=== PATIENT | female | born 1995 | race Caucasian/White ===

== ENCOUNTER 2019-09-27 14:16 | Observation (INO) ==
[2019-09-27] MEDS ORDERED: SODIUM CHLORIDE 0.9% 1000ML 2,000 ML IV ONE (14:25)
--- NOTE | 2019-09-27 14:28 | Emergency Department Note ---
Impression & Plan Acute cholecystitis, Abdominal pain, UTI (urinary tract infection) ED Provider Note NAME: DANIEL CORONEL AGE: 23 SEX: F : 1995 ARRIVES VIA: Walk-In INFORMANT: Patient ED PROVIDER(S): Alfa Guerin DO CHIEF COMPLAINT: abdominal pain HPI: Pt was seen at [facility] and referred in to the ER for possible appendicitis. Patient notes that she has pain in the right upper quadrant which started yesterday morning. She describes pain as a 6 out of 10. She does have nausea. No vomiting. No dysuria urgency or frequency. Last menstrual period was September 21. Pain is worse with eating and drinking. Normal bowel movement was in the past 24 hours. Pain is also significantly worsened upon palpation. She notes she was evaluated at [facility] and they sent her over for concern from appendicitis. No previous abdominal surgeries. No vaginal bleeding or vaginal discharge. ROS: See above HPI for pertinent positives & negatives. A total of 10 systems reviewed and were otherwise negative. PAST MEDICAL HISTORY:anxiety PAST SURGICAL HISTORY:See Below FAMILY HISTORY:Cancer SOCIAL HISTORY:denies drinking HOME MEDICATIONS:See Below ALLERGIES:See Below VITALS:See Below PHYSICAL EXAMINATION: GENERAL: Sitting up in bed, alert, well appearing, well nourished, no distress, non-toxic EYE EXAM: normal conjunctiva. OROPHARYNX: no exudate, no erythema, lips, buccal mucosa, and tongue normal and mucous membranes are moist NECK: supple, no nuchal rigidity, no adenopathy, non-tender LUNGS: Clear to auscultation. Normal chest wall mechanics HEART: no murmurs, S1 normal and S2 normal ABDOMEN: abdomen soft, acutely tender to palpation right upper quadrant, normo- active bowel sounds, no masses, no rebound or guarding. BACK: Back is symmetrical on inspection and there is no deformity, no midline tenderness, no CVA tenderness. SKIN: no rashes and no bruising UPPER EXTREMITIES: upper extremities are grossly normal. LOWER EXTREMITIES: No pitting edema. NEURO EXAM: Normal sensorium, cranial nerves II-XII grossly intact, normal speech, no gross weakness of arms, no gross weakness of legs. MEDICAL DECISION MAKING: Patient is a 23-year-old female who presents the ER for right upper quadrant pain that has been present for the past 24 hours. On exam she is significantly tender in the right upper quadrant. IV was established blood work was obtained shows no significant leukocytosis or anemia. BMP along with LFTs bilirubin and lipase was unremarkable. UA initially was contaminated. CT abdomen pelvis shows a distended gallbladder concerning for acute cholecystitis. With her exam I did consult general surgery. She was evaluated and they took her to the OR. Repeat UA does suggest possible UTI as well as she has leukocytes and white cells which was uninterpretable on the first. Will defer to the admission team in regards to this as she was already out of the ER when this resulted. Triage Nursing notes reviewed. Prior medical records reviewed Vital Signs: reviewed and remarkable for no significant abnormalities Differential diagnosis: Differential diagnoses includes but is not limited to gastritis, peptic ulcer disease, GERD, gallbladder disease, pancreatitis, small bowel obstruction, acute coronary syndrome, pericarditis, ischemic bowel, irritable bowel disease, irritable bowel syndrome, appendicitis, diverticulitis, malignancy, hernia, urinary tract infection, torsion, /ectopic (if female), perforation, trauma, infectious. ER treatment provided: See below Diagnostics interpreted by me: ECG: none Cardiac Monitoring: An order was placed for continuous cardiac monitoring. The monitor shows a rate of 91 with sinus rhythm. Laboratory studies: As stated above and show below. Imaging studies: CT abdomen pelvis suggest acute cholecystitis. Consultation(s): Discussed with Carlos Mckinley ED COURSE: Procedures: none Critical Care: None Past Med/Surg History Medical History ADHD Social History Preferred Language: Haitian Feels Safe at Home: Yes Smoking Status: Never smoker Allergies Allergies Allergy/AdvReac Type Severity Reaction Status Date / Time No Known Allergies Allergy Unverified 09/27/19 15:23 Home Meds Home Medications Medication Instructions Recorded Confirmed guanfacine 1 mg PO DAILY 03/14/19 09/27/19 sertraline [Zoloft] 50 mg PO QAM 03/14/19 09/27/19 Results & Data (ED) Vital Signs Vital Signs - 24 hr 09/27/19 14:18 09/27/19 16:30 09/27/19 16:43 Temperature 36.8 C 36.8 C Temperature Source Oral Oral Pulse Rate 94 H Pulse Rate [Right Finger] 81 81 Pulse Rhythm Regular Pulse Rhythm [Right Finger] Regular Pulse Strength Normal Pulse Strength [Right Finger] Normal Respiratory Rate 16 20 18 Respiratory Effort / Characteristics Non-Labored Non-Labored Spontaneous Respiratory Depth Normal Normal Respiratory Pattern Regular Regular Blood Pressure 126/87 Blood Pressure [Left Arm] 137/82 132/92 Blood Pressure Mean 100 Blood Pressure Mean [Left Arm] 100 105 Blood Pressure Position [Left Arm] Lying Pulse Oximetry 100 100 100 Oxygen Delivery Method Room Air Room Air Room Air Sepsis Recent Fever Within 48 Hours No Sepsis Action Taken by Nursing No Action Required Laboratory Data Result diagrams: 09/27/19 14:46 09/27/19 14:46 Lab Results 09/27/19 09/27/19 09/27/19 Range/Units 14:46 14:46 14:46 WBC 10.06 (4.8-10.8) K/uL RBC 4.79 (4.2-5.4) M/uL Hgb 13.6 (12.0-16.0) g/dL POC Hgb (12.0-16.0) g/dl Hct 38.8 (37-47) % POC Hct (37-47) % MCV 81.0 (80-100) fL MCH 28.4 (25-34) pg MCHC 35.1 (32-36) g/dL RDW Std Deviation 38.3 (36.4-46.3) fL RDW Coeff of Tenisha 12.9 (11.5-14.5) % Plt Count 239 (130-400) K/uL MPV 10.3 (7.4-10.4) fL Immature Gran % (Auto) 0.3 % Neut % (Auto) 63.1 % Lymph % (Auto) 27.9 % Dale % (Auto) 6.3 % Eos % (Auto) 2.1 % Baso % (Auto) 0.3 % Immature Gran # (Auto) 0.03 H (0.00-0.02) K/uL Neut # (Auto) 6.35 (1.4-6.5) K/uL Lymph # (Auto) 2.81 (1.2-3.4) K/uL Dale # (Auto) 0.63 H (0.11-0.59) K/uL Eos # (Auto) 0.21 (0-0.5) K/uL Baso # (Auto) 0.03 (0-0.2) K/uL POC Sodium (135-144) mmol/L Sodium 138 (136-145) mmol/L POC Potassium (3.3-5.0) mmol/L Potassium 3.7 (3.5-5.1) mmol/L POC Chloride (101-112) mmol/L Chloride 106 (98-107) mmol/L Carbon Dioxide 22 (21-32) mmol/L POC Total CO2 (24-31) mEq/l Anion Gap 11.0 (3-11) POC Anion Gap (16-25) mmol/L POC BUN (7-18) mg/dl BUN 9 (7-18) mg/dl Creatinine 0.73 (0.6-1.2) mg/dl POC Creatinine (0.6-1.3) mg/dl Est Cr Clr Drug Dosing 161.5 ml/min Est GFR ( Amer) 136.5 Est GFR (Non-Af Amer) 117.7 BUN/Creatinine Ratio 11.8 (10-20) Glucose 97 (70-99) mg/dl POC Glucose (other) (70-99) mg/dl Calcium 8.8 (8.5-10.1) mg/dl POC Ioniz Calcium Jameson (1.12-1.32) mmol/l Total Bilirubin 0.5 (0.2-1) mg/dl AST 22 (15-37) U/L ALT 44 (12-78) U/L Alkaline Phosphatase 86 (45-117) U/L Total Protein 7.9 (6.4-8.2) gm/dl Albumin 3.9 (3.4-5.0) gm/dl Globulin 4.0 (2.5-4.0) gm/dl Albumin/Globulin Ratio 1.0 (0.9-2) Lipase 179 (73-393) U/L Urine Color Yellow Urine Appearance Cloudy A (Clear) Urine pH 6.0 (4.5-7.5) Ur Specific [place] 1.013 (1.000-1.030) Urine Protein Trace H (Negative) Urine Glucose (UA) Negative (Negative) Urine Ketones Negative (Negative) Urine Blood 1+ H (Negative) Urine Nitrite Negative (Negative) Urine Bilirubin Negative (Negative) Urine Urobilinogen Negative (Negative) Ur Leukocyte Esterase 3+ H (Negative) Urine WBC (Auto) >30 H (0-5) /hpf Urine RBC (Auto) 10-30 H (0-4) /hpf U Hyaline Cast (Auto) 5-10 H (0-5) /lpf U Epithel Cells (Auto) >30 H (0-5) /lpf Urine Bacteria (Auto) 1+ H (Negative) Urine Test (Negative) 09/27/19 09/27/19 09/27/19 Range/Units 14:53 16:00 16:00 WBC (4.8-10.8) K/uL RBC (4.2-5.4) M/uL Hgb (12.0-16.0) g/dL POC Hgb 12.9 (12.0-16.0) g/dl Hct (37-47) % POC Hct 38 (37-47) % MCV (80-100) fL MCH (25-34) pg MCHC (32-36) g/dL RDW Std Deviation (36.4-46.3) fL RDW Coeff of Tenisha (11.5-14.5) % Plt Count (130-400) K/uL MPV (7.4-10.4) fL Immature Gran % (Auto) % Neut % (Auto) % Lymph % (Auto) % Dale % (Auto) % Eos % (Auto) % Baso % (Auto) % Immature Gran # (Auto) (0.00-0.02) K/uL Neut # (Auto) (1.4-6.5) K/uL Lymph # (Auto) (1.2-3.4) K/uL Dale # (Auto) (0.11-0.59) K/uL Eos # (Auto) (0-0.5) K/uL Baso # (Auto) (0-0.2) K/uL POC Sodium 140 (135-144) mmol/L Sodium (136-145) mmol/L POC Potassium 3.8 (3.3-5.0) mmol/L Potassium (3.5-5.1) mmol/L POC Chloride 104 (101-112) mmol/L Chloride (98-107) mmol/L Carbon Dioxide (21-32) mmol/L POC Total CO2 23 L (24-31) mEq/l Anion Gap (3-11) POC Anion Gap 18.0 (16-25) mmol/L POC BUN 7 (7-18) mg/dl BUN (7-18) mg/dl Creatinine (0.6-1.2) mg/dl POC Creatinine 0.7 (0.6-1.3) mg/dl Est Cr Clr Drug Dosing ml/min Est GFR ( Amer) Est GFR (Non-Af Amer) BUN/Creatinine Ratio (10-20) Glucose (70-99) mg/dl POC Glucose (other) 99 (70-99) mg/dl Calcium (8.5-10.1) mg/dl POC Ioniz Calcium [place] 1.17 (1.12-1.32) mmol/l Total Bilirubin (0.2-1) mg/dl AST (15-37) U/L ALT (12-78) U/L Alkaline Phosphatase (45-117) U/L Total Protein (6.4-8.2) gm/dl Albumin (3.4-5.0) gm/dl Globulin (2.5-4.0) gm/dl Albumin/Globulin Ratio (0.9-2) Lipase (73-393) U/L Urine Color Yellow Urine Appearance Clear (Clear) Urine pH 6.5 (4.5-7.5) Ur Specific [place] 1.041 H (1.000-1.030) Urine Protein Negative (Negative) Urine Glucose (UA) Negative (Negative) Urine Ketones Negative (Negative) Urine Blood Negative (Negative) Urine Nitrite Negative (Negative) Urine Bilirubin Negative (Negative) Urine Urobilinogen Negative (Negative) Ur Leukocyte Esterase 2+ H (Negative) Urine WBC (Auto) >30 H (0-5) /hpf Urine RBC (Auto) 0-4 (0-4) /hpf U Hyaline Cast (Auto) 1-5 (0-5) /lpf U Epithel Cells (Auto) 0-5 (0-5) /lpf Urine Bacteria (Auto) Negative (Negative) Urine Test Negative (Negative) Administered Medications Ioversol (Optiray 320 100ml) 94 ml IV ONCE PRN PRN Reason: Interaction Checking Stop: 10/01/19 15:11 Last Admin: 09/27/19 15:12 Dose: 1 ml Documented by: [id number] Discontinued Medications Sodium Chloride (Nss 1000ml) 2,000 mls @ 999 mls/hr IV .Q2H1M ONE Stop: 09/27/19 16:25 Last Admin: 09/27/19 15:00 Dose: 999 mls/hr Documented by: [id number] Discharge Plan Visit Data *Final* Discharge Date/Time: 09/27/19 16:40 Chief Complaint: Abdominal Pain Stated Complaint: ABDOMINAL PAIN ED Provider: Alfa Guerin Discharge Problem: Acute cholecystitis, Abdominal pain, UTI (urinary tract infection) Patient Disposition: Still a Patient Discharge Instructions Interventions: ED Discharge Assessment Last Done: 09/27/19 16:40 Discharge Problem: Abdominal pain Qualifiers: Abdominal location: right upper quadrant Qualified Code(s): R10.11 - Right upper quadrant pain UTI (urinary tract infection) Qualifiers: Urinary tract infection type: site unspecified Hematuria presence: without hematuria Qualified Code(s): N39.0 - Urinary tract infection, site not specified
[2019-09-27 15:02] LABS: Basophils # (auto) 0.03 K/uL (0-0.2); Basophils % (auto) 0.3 %; Eosinophils # (auto) 0.21 K/uL (0-0.5); Eosinophils % (auto) 2.1 %; Hematocrit (blood only) 38.8 % (37-47); Hemoglobin 13.6 g/dL (12.0-16.0); Immature Granulocytes # (auto) 0.03 K/uL (0.00-0.02); Immature Granulocytes % (auto) 0.3 %; Lymphocytes # (auto) 2.81 K/uL (1.2-3.4); Lymphocytes % (auto) 27.9 %; Mean Corpuscular Hemoglobin 28.4 pg (25-34); Mean Corpuscular Hgb Conc 35.1 g/dL (32-36); Mean Platelet Volume 10.3 fL (7.4-10.4); Monocytes # (auto) 0.63 K/uL (0.11-0.59); Monocytes % (auto) 6.3 %; Neutrophils # (auto) 6.35 K/uL (1.4-6.5); Neutrophils % (auto) 63.1 %; Platelet Count 239 K/uL (130-400); RDW Coefficient of Variation 12.9 % (11.5-14.5); RDW Standard Deviation 38.3 fL (36.4-46.3); Red Blood Count 4.79 M/uL (4.2-5.4); White Blood Count 10.06 K/uL (4.8-10.8)
[2019-09-27 15:06] LABS: Appearance Urine Cloudy (Clear); Bacteria Urine Automated 1+ (Negative); Bilirubin Urine Negative (Negative); Blood Urine 1+ (Negative); Color Urine Yellow; Epithelial Cell Urine Auto >30 /lpf (0-5); Glucose Urine UA Negative (Negative); Ketones Urine Negative (Negative); Leukocyte Esterase Urine 3+ (Negative); Nitrite Urine Negative (Negative); Protein Urine Trace (Negative); Specific Gravity Urine 1.013 (1.000-1.030); Urobilinogen Urine Negative (Negative); WBC Urine Automated >30 /hpf (0-5)
[2019-09-27 15:10] LABS: iSTAT Creatinine 0.7 mg/dl (0.6-1.3); iSTAT Hemoglobin 12.9 g/dl (12.0-16.0); iSTAT Ionized Calcium 1.17 mmol/l (1.12-1.32); iSTAT Potassium 3.8 mmol/L (3.3-5.0)
[2019-09-27] MEDS ORDERED: IOVERSOL 100ml IV PRN (15:12)
[2019-09-27 15:19] LABS: Albumin Level 3.9 gm/dl (3.4-5.0); BUN Creatinine Ratio 11.8 (10-20); Calcium 8.8 mg/dl (8.5-10.1); Creatinine Clr Calc Pharmacy 161.5 ml/min; Est GFR (African American) 136.5; Est GFR (Non-African American) 117.7; Potassium 3.7 mmol/L (3.5-5.1)
[2019-09-27 15:22] LABS: Bilirubin,Total 0.5 mg/dl (0.2-1); Total Protein 7.9 gm/dl (6.4-8.2)
--- NOTE | 2019-09-27 15:31 | CT Scan Report ---
CT abd pelvis IV con only CLINICAL HISTORY: Right mid abdominal pain COMPARISON STUDY: Renal ultrasound dated 09/07/2019 TECHNIQUE: The patient was scanned in a dynamic helical fashion during intravenous administration of 94 cc of Optiray 320 A dose lowering technique was utilized adhering to the principles of ALARA. CT DOSE: 1036.63 mGycm FINDINGS: Lower chest: The heart is normal in size and configuration, without pericardial effusion. The lung ba ses and pleural spaces are clear. Liver: There is suspected mild hepatic steatosis. No focal hepatic masses are visualized. Gallbladder: The gallbladder wall deforms the right anterior abdominal wall. This suggests increased pressure within the gallbladder, a finding which can be seen in acute cholecystitis. Clinical correla tion in this regard is advocated. No gallstones are visualized on CT scanning. Gallbladder ultrasonog rosana might be considered in follow-up. Spleen: Spleen is mildly enlarged measuring 14 cm Pancreas: Unremarkable. Adrenal glands: Unremarkable. Kidneys: There is a 38 mm upper pole right renal staghorn calculus. There is mild associated uroepith elial thickening. There is no significant hydronephrosis. No ureteral calculi are visualized. Bowel: There are no transition zones indicate bowel obstruction. Appendix appears normal. There is no acute diverticulitis. Peritoneum: There is no intraperitoneal free air or abdominal ascites. Vasculature: The abdominal aorta is normal in course and caliber. Adenopathy: None. Pelvic viscera: The bladder, and pelvic viscera are unremarkable. Skeletal structures: No destructive osseous lesions are seen. IMPRESSION: 1. No evidence of bowel obstruction. No evidence of free air 2. 38 mm upper pole staghorn right renal calculus. There is mild associated uroepithelial thickening. Correlation with urinalysis is recommended to exclude a coexistent urinary tract infection 3. Mild gallbladder distention. There is evidence for increased luminal pressure as the gallbladder d eforms the right anterior abdominal wall. This finding is associated with acute cholecystitis. Clinic al correlation in regards to acute cholecystitis is recommended. Correlation with gallbladder ultraso und and/or nuclear medicine hepatobiliary study should be considered in follow-up ACT 112: Negative or not required by law. Electronically signed by: Emery Sandra M.D. 09/27/2019 3:30 PM
[2019-09-27 16:14] LABS: Appearance Urine Clear (Clear); Bacteria Urine Automated Negative (Negative); Bilirubin Urine Negative (Negative); Blood Urine Negative (Negative); Color Urine Yellow; Epithelial Cell Urine Auto 0-5 /lpf (0-5); Glucose Urine UA Negative (Negative); Ketones Urine Negative (Negative); Leukocyte Esterase Urine 2+ (Negative); Nitrite Urine Negative (Negative); Protein Urine Negative (Negative); RBC Urine Automated 0-4 /hpf (0-4); Specific Gravity Urine 1.041 (1.000-1.030); Urobilinogen Urine Negative (Negative); WBC Urine Automated >30 /hpf (0-5); pH Urine 6.5 (4.5-7.5)
--- NOTE | 2019-09-27 16:26 | History & Physical Report ---
Date of Service September 27, 2019 Assessment & Plan (1) Acute cholecystitis: Given her persistent symptoms and CT findings of acute cholecystitis, will plan for laparoscopic cholecystectomy. Dr. Neely-patient with recurrent right upper quadrant pain and nausea similar episode several weeks prior Now with CT evidence of severe gallbladder distention and thickening consistent with acute cholecystitis She does not have evidence stones but likely sludge I have discussed with the patient and her mother laparoscopic cholecystectomy possible open cholecystectomy They do wish to proceed History of Present Illness Primary Care Provider: [facility] 23 y/o female with episodic RUQ pain, nausea for several months now with pain constant since yesterday morning. Not able to tolerate much by mouth. Had similar episode a few weeks ago and treated with Cipro for UTI. She felt well while on the antibiotics but began having symptoms again within a few days. Allergies Allergy/AdvReac Type Severity Reaction Status Date / Time No Known Allergies Allergy Unverified 09/27/19 15:23 Past Med/Surg History Medical History ADHD Social History Preferred Language: Stateless Feels Safe at Home: Yes Smoking Status: Never smoker Review of Systems Constitutional: no fever and no chills Gastrointestinal: + abdominal pain and + nausea Physical Exam Constitutional: WD/WN, vitals as above Respiratory: normal respiratory effort, lungs clear to auscultation Cardiovascular: RRR, no murmur, no edema Gastrointestinal (Abdomen): Inspection/Auscultation: abdomen not distended Percussion/Palpation: + abdomen tender (RUQ) and abdomen soft Results & Data Results & Data ([facility]) Vital Signs (Past 12 Hours) Vital Signs Temp Pulse Resp BP Pulse Ox 09/27/19 14:18 36.8 C 94 H 16 126/87 100 PG Care Time/CCT Total # of Minutes Spent Total Time Spent with Patient: Total time spent is greater than 50% in coordination of care (as documented) at patient's floor/unit and/or counseling patient: Coding Level of Care Code None Diagnoses Acute cholecystitis K81.0
[2019-09-27] MEDS ORDERED: BUPIVACAINE 0.5 % 5 MG/1 ML MPF 30ML VIAL ONE (16:31)
[2019-09-27] MEDS ORDERED: cefOXitin 2,000 MG in DEXTROSE 5% 50 ML IV STA (16:44)
[2019-09-27] MEDS ORDERED: ROCURONIUM BROMIDE 10 MG/ML 5 ML VIAL ONE (16:49)
[2019-09-27] MEDS ORDERED: ACETAMINOPHEN 1000 MG/100 ML IV IV ONE ×2 (16:50→19:53)
[2019-09-27 16:56] LABS: Pregnancy Test, Urine Negative (Negative)
[2019-09-27] MEDS ORDERED: HYDROmorphone INJ 2 MG/ML SYR/VIAL IV PRN (17:57)
[2019-09-27] MEDS ORDERED: ATROPINE SULFATE 0.1 MG/ML 10ML SYR IV PRN (17:57)
[2019-09-27] MEDS ORDERED: MIDAZOLAM HCL 1 MG/ML 2ML VIAL ONE (17:57)
[2019-09-27] MEDS ORDERED: ONDANSETRON INJ 2 MG/ML 2 ML VIAL IV PRN ×2 (17:57→20:55)
[2019-09-27] MEDS ORDERED: fentaNYL citrate 100 MCG/2 ML VIAL ONE (17:57)
[2019-09-27] MEDS ORDERED: PROMETHAZINE HCL 6.25 MG in SODIUM CHLORIDE 0.9% 50 ML IV PRN (17:57)
[2019-09-27] MEDS ORDERED: fentaNYL citrate 100 MCG/2 ML VIAL IV PRN (17:57)
[2019-09-27] MEDS ORDERED: ePHEDrine sulfate 50 MG/ML AMP IV PRN (17:57)
--- NOTE | 2019-09-27 17:57 | Anesthesiology Consultation ---
Date of Service September 27, 2019 Assessment & Plan Chart Review Chart Review: Acceptable Risk for Surgery and Patient NOT seen in Pre Admission Testing Consults Requested none ASA [id number] Proposed Anesthesia Anesthesia Type: General Risk / Benefits Reviewed With: PT / POA / Parent / Guardian, Accepts Plan and Informed Consent Obtained History Surgery Operation Date: 09/27/19 11:00 Proposed Procedures p Laparoscopic Cholecystectomy - Gato Neely MD, FACS Height/Weight Height: 6 ft Weight: 100.2 kg Allergies Allergy/AdvReac Type Severity Reaction Status Date / Time No Known Allergies Allergy Unverified 09/27/19 15:23 Medications Home Medications Medication Instructions Recorded Confirmed Last Taken guanfacine 1 mg PO DAILY 03/14/19 09/27/19 03/14/19 sertraline [Zoloft] 50 mg PO QAM 03/14/19 09/27/19 03/14/19 Active Medications Generic Name Dose Route Start Last Admin Trade Name Freq PRN Reason Stop Dose Admin Ioversol 94 ml 09/27/19 15:12 09/27/19 15:12 Optiray 320 100ml IV 10/01/19 15:11 1 ml ONCE PRN Administration Interaction Checking NPO Date Last Intake of Fluids: 09/27/19 Time Last Intake of Fluids: 09:00 Date Last Intake of Solids: 09/26/19 Time Last Intake of Solids: 01:30 Past Medical History Medical History ADHD Exercise / Class Metabolic Activity II 4-5 Yardwork/Stairs/Walk up hill Past Anesthesia History No Hx of Anesthesia Complications and No Family Hx of Anesthesia Complications History of PONV No Hx of PONV and No Hx of Motion Sickness Social History Smoking Status: Light tobacco smoker Physical Exam Vital Signs Last Vital Signs Temp 36.8 C 09/27/19 16:43 Pulse 81 09/27/19 16:43 Resp 18 09/27/19 16:43 BP 132/92 09/27/19 16:43 Pulse Ox 100 09/27/19 16:43 ENMT Mouth: no dentition abnormality Thyromental Distance: > or= 3.5 Finger Breadths Mallampati Class: II Neck normal visual inspection Respiratory normal respiratory effort Auscultation: lungs clear to auscultation bilaterally Cardiovascular Rate/Rhythm: regular rate and regular rhythm Psychiatric Orientation: alert Testing Laboratory Results 09/27/19 14:46 09/27/19 14:46 Urine Color Yellow 09/27/19 16:00 Urine Appearance Clear (Clear) 09/27/19 16:00 Urine pH 6.5 (4.5-7.5) 09/27/19 16:00 Ur Specific [place] 1.041 (1.000-1.030) H 09/27/19 16:00 Urine Protein Negative (Negative) 09/27/19 16:00 Urine Glucose (UA) Negative (Negative) 09/27/19 16:00 Urine Ketones Negative (Negative) 09/27/19 16:00 Urine Nitrite Negative (Negative) 09/27/19 16:00 Ur Leukocyte Esterase 2+ (Negative) H 09/27/19 16:00 Urine WBC (Auto) >30 /hpf (0-5) H 09/27/19 16:00 Urine RBC (Auto) 0-4 /hpf (0-4) 09/27/19 16:00 U Hyaline Cast (Auto) 1-5 /lpf (0-5) 09/27/19 16:00 U Epithel Cells (Auto) 0-5 /lpf (0-5) 09/27/19 16:00 Urine Bacteria (Auto) Negative (Negative) 09/27/19 16:00 Urine Test Negative (Negative) 09/27/19 16:00 09/27/19 14:53 POC Glucose (other) 99 09/27/19 09/27/19 16:00 14:46 Urine Test Negative POC Ur Test Pending
[2019-09-27] MEDS ORDERED: ONDANSETRON INJ 2 MG/ML 2 ML VIAL ONE (18:32)
[2019-09-27] MEDS ORDERED: GLYCOPYRROLATE 0.2 MG/ML VIAL ONE (18:32)
[2019-09-27] MEDS ORDERED: PROPOFOL IV EMULSION 10 MG/ML 20 ML VIAL IV ONE (18:32)
[2019-09-27] MEDS ORDERED: DEXAMETHASONE SOD INJ 4 MG/ML VIAL ONE (18:32)
[2019-09-27] MEDS ORDERED: NEOSTIGMINE METHYLSULFATE 5 MG/5 ML SYR ONE (18:32)
[2019-09-27] MEDS ORDERED: LIDOCAINE HCL 2% 2 ML VIAL/AMP(20MG/ML) INFIL ONE (18:32)
[2019-09-27] MEDS ORDERED: MoRPHine SULFATE PF 1 MG/ML 10 ML AMP/VIAL ONE (19:08)
[2019-09-27] MEDS ORDERED: ACETAMINOPHEN 1,000 MG/100 ML VIAL IV STA (19:31)
--- NOTE | 2019-09-27 19:31 | Post Operative Brief Note ---
PG Immediate Post Op with CF Date of Surgery September 27, 2019 Pre & Post Diagnosis Operation Date: 09/27/19 11:00 Pre-Op Diagnosis: Acute cholecystitis Post-Op Diagnosis: Acute cholecystitis and chronic cholecystitis with hydrops Procedure Operation Date: 09/27/19 11:00 Actual Procedures p Laparoscopic Cholecystectomy(Not Applicable) - Gato Neely MD, FACS Surgeon Gato Neely MD, FACS Specimens Specimen Description: A. Gall Bladder and Contents
--- NOTE | 2019-09-27 20:05 | Anesthesiology Progress Note ---
Date of Service September 27, 2019 Anesthesia Post Procedure Vital Signs Vital Signs: Temp Pulse Pulse Pulse Resp BP BP 09/27/19 19:57 36.5 C 64 16 122/66 09/27/19 16:43 36.8 C 81 18 132/92 09/27/19 16:30 81 20 137/82 09/27/19 14:18 36.8 C 94 H 16 126/87 Pulse Ox 09/27/19 19:57 100 09/27/19 16:43 100 09/27/19 16:30 100 09/27/19 14:18 100 Pain Intensity Abdomen: Pain Intensity: 6 Transfer of Care Handoff Completed per policy Notes Mental Status: alert / awake / arousable Patient Amnestic to Procedure: Yes Nausea / Vomiting: adequately controlled Pain: adequately controlled Airway Patency, RR, SpO2: stable & adequate BP & HR: stable & adequate Hydration State: stable & adequate Anesthetic Complications: no major complications apparent
--- NOTE | 2019-09-27 20:34 | Operative Report (OR) ---
DATE OF OPERATION: 09/27/2019 NAME OF OPERATION: Laparoscopic cholecystectomy. PREOPERATIVE DIAGNOSIS: Acute cholecystitis. POSTOPERATIVE DIAGNOSES: Acute cholecystitis with chronic cholecystitis and hydrops. STAFF SURGEON: Gato Neely MD. ANESTHESIA: General. DESCRIPTION OF PROCEDURE: The patient was brought in the operating room and placed on the operating table in supine position. Her abdomen was prepped and draped in usual fashion. Pneumatic stockings and orogastric tube were placed. Incision was made above the umbilicus. She appeared to have a scar in the skin. Incision was made carrying dissection down to the fascia, placing a Veress needle producing pneumoperitoneum. An 11 mm port was placed at this level. The patient was placed in reverse Trendelenburg position. Three 5 mm ports were placed under visualization. The gallbladder was severely distended and acutely inflamed. It was aspirated of bile, which was crystal clear indicating hydrops. Dissection was carried out at the yaneli hepatis indicating significant inflammation, which was acute and chronic. Cystic duct and cystic artery were identified. These were clipped and transected. The gallbladder was then dissected away from the liver bed showing severe edema and scar tissue in the posterior bed. Gallbladder was placed in an Endobag. After appropriate hemostasis and irrigation, the Endobag was removed through the umbilical site. I did have to enlarge the fascial incision to remove the gallbladder because of its size. Fascia was closed using 0 PDS suture. Skin reapproximated using subcuticular 4-0 Monocryl with Dermabond. The patient was transferred to recovery room in stable condition. I attest to the content of the Intraoperative Record and any orders documented therein. Any exception s are noted below.
--- NOTE | 2019-09-27 20:46 | Consultation ---
Date of Consultation September 27, 2019 Assessment & Plan (1) S/P laparoscopic cholecystectomy: s/p lap karlie for acute/chronic cholecystitis. management per Dr Neely. (2) Asthma: no exacerbation at this time. will make sure albuterol MDI is available to her prn. (3) Anxiety: cont zoloft. (4) Recurrent urinary tract infection: suspect that staghorn calculus is playing a role in her recurrent UTIs. I made her aware of the kidney stone finding on CT today and advised f/u with urology after discharge for management. u/a is not terribly suspicious for UTI. (5) Staghorn renal calculus: right-sided. recommend outpatient urology referral. (6) ADHD: Cont guanfacine. Thank you for the consult. Will follow with you. History of Present Illness Requesting Physician: Gato Neely MD Reason for Consultation: post-op medical management Attending Physician: Gato Neely MD, FACS History of Present Illness 23yo female with history of anxiety, ADHD, asthma, and recurrent UTIs who presented today with recurrent episodes of abdominal pain dating back 1-2 months or longer. Some of the episodes were associated with nausea. The episodes had been increasing in quantity of late. Upon presentation today had CT abd/pelvis showing concern for acute cholecystitis as well as a large right-sided renal staghorn calculus. I saw the patient post-op on the med/surg unit. Her abdominal pain she had earlier today was resolved. She was sleepy from the recent anesthesia but able to answer my questions. She only takes albuterol MDI on prn basis for asthma. Last use - yesterday. Allergies Allergy/AdvReac Type Severity Reaction Status Date / Time No Known Allergies Allergy Unverified 09/27/19 15:23 Home Medications Home Medications Medication Instructions Recorded Confirmed Type guanfacine 1 mg PO DAILY 03/14/19 09/27/19 History sertraline [Zoloft] 50 mg PO QAM 03/14/19 09/27/19 History Patient History Medical History (Updated 09/27/19 @ 21:00 by Dung Hunt) ADHD Anxiety Asthma Recurrent urinary tract infection Surgical History (Updated 09/27/19 @ 20:50 by Dung Hunt) S/P laparoscopic cholecystectomy Family History (Updated 09/27/19 @ 20:51 by Dung Hunt) Father No problems noted. Mother No problems noted. Denies family history of Gall bladder disease Social History (Updated 09/27/19 @ 20:52 by Dung Hunt) Preferred Language: Ukrainian Communication Ability: Effective Environmental Services Attendant Required: No Beliefs That Will Affect Care: None Current Living Situation: Alone current occupational status: student current occupation: studying pre-vet; works at [employer] Other Information That Helps Us Care for You: No Feels Safe at Home: Yes Safety Concerns: Feels Safe At This Time Smoking Status: Light tobacco smoker Tobacco Type: e-cigarettes ; Do You Dip or Chew Tobacco: No ; Second Hand Exposure: No ; Tobacco Cessation Education Requested by Patient: No Hx Alcohol Use: No Hx Substance Use: No Review of Systems Constitutional: no fever and no chills Ear, Nose, Mouth, Throat: no nasal congestion and no sore throat Respiratory: + cough (occasional); no dyspnea Cardiovascular: no chest pain Gastrointestinal: + abdominal pain and + nausea; no vomiting Genitourinary: no dysuria Musculoskeletal: no joint pain Psychiatric: + anxiety and + difficulty concentrating Physical Exam Constitutional: no acute distress and no altered mental status Eyes: 1-2mm pupils b/l ENMT: Mouth: + dry oral mucous membranes Neck: trachea midline, no thyromegaly Respiratory: normal respiratory effort, lungs clear to auscultation Cardiovascular: Rate/Rhythm: regular rate and regular rhythm Heart Sounds: normal S1 and normal S2; no murmur Vessels: posterior tibial pulses present and dorsalis pedis pulses present; no JVD Extremities: no edema Gastrointestinal (Abdomen): normal bowel sounds, soft, nontender, no hepatosplenomegaly Inspection/Auscultation: + abdomen distended (minimal) Musculoskeletal: no cyanosis or clubbing, extremities motor strength 5/5 Skin: abdominal wall incisions clean Neurologic: deep tendon reflexes 2+ bilaterally and moves all extremities Psychiatric: Orientation: alert and oriented x 3 Lymphatic: no cervical lymphadenopathy Results & Data ([facility]) Vital Signs (Past 12 Hours) Vital Signs Temp Pulse Pulse Pulse Resp BP BP 09/27/19 20:13 36.7 C 66 16 111/75 09/27/19 20:05 36.4 C L 65 18 122/71 09/27/19 19:57 36.5 C 64 16 122/66 05/04/20 16:43 36.8 C 81 18 132/92 09/27/19 16:30 81 20 137/82 09/27/19 14:18 36.8 C 94 H 16 126/87 Pulse Ox 09/27/19 20:13 96 09/27/19 20:05 98 09/27/19 19:57 100 09/27/19 16:43 100 09/27/19 16:30 100 09/27/19 14:18 100 Laboratory Results Laboratory Results - last 24 hr 09/27/19 09/27/19 09/27/19 14:46 14:46 14:46 WBC 10.06 RBC 4.79 Hgb 13.6 POC Hgb Hct 38.8 POC Hct MCV 81.0 MCH 28.4 MCHC 35.1 RDW Std Deviation 38.3 RDW Coeff of Tenisha 12.9 Plt Count 239 MPV 10.3 Immature Gran % (Auto) 0.3 Neut % (Auto) 63.1 Lymph % (Auto) 27.9 [place] % (Auto) 6.3 Eos % (Auto) 2.1 Baso % (Auto) 0.3 Immature Gran # (Auto) 0.03 H Neut # (Auto) 6.35 Lymph # (Auto) 2.81 [place] # (Auto) 0.63 H Eos # (Auto) 0.21 Baso # (Auto) 0.03 POC Sodium Sodium 138 POC Potassium Potassium 3.7 POC Chloride Chloride 106 Carbon Dioxide 22 POC Total CO2 Anion Gap 11.0 POC Anion Gap POC BUN BUN 9 Creatinine 0.73 POC Creatinine Est Cr Clr Drug Dosing 161.5 Est GFR ( Amer) 136.5 Est GFR (Non-Af Amer) 117.7 BUN/Creatinine Ratio 11.8 Glucose 97 POC Glucose (other) Calcium 8.8 POC Ioniz Calcium Jameson Total Bilirubin 0.5 AST 22 ALT 44 Alkaline Phosphatase 86 Total Protein 7.9 Albumin 3.9 Globulin 4.0 Albumin/Globulin Ratio 1.0 Lipase 179 Urine Color Urine Appearance Urine pH Ur Specific [place] Urine Protein Urine Glucose (UA) Urine Ketones Urine Blood Urine Nitrite Urine Bilirubin Urine Urobilinogen Ur Leukocyte Esterase Urine WBC (Auto) Urine RBC (Auto) U Hyaline Cast (Auto) U Epithel Cells (Auto) Urine Bacteria (Auto) Urine Test POC Ur Test Pending 09/27/19 09/27/19 09/27/19 14:46 14:53 16:00 WBC RBC Hgb POC Hgb 12.9 Hct POC Hct 38 MCV MCH MCHC RDW Std Deviation RDW Coeff of Tenisha Plt Count MPV Immature Gran % (Auto) Neut % (Auto) Lymph % (Auto) [place] % (Auto) Eos % (Auto) Baso % (Auto) Immature Gran # (Auto) Neut # (Auto) Lymph # (Auto) [place] # (Auto) Eos # (Auto) Baso # (Auto) POC Sodium 140 Sodium POC Potassium 3.8 Potassium POC Chloride 104 Chloride Carbon Dioxide POC Total CO2 23 L Anion Gap POC Anion Gap 18.0 POC BUN 7 BUN Creatinine POC Creatinine 0.7 Est Cr Clr Drug Dosing Est GFR ( Amer) Est GFR (Non-Af Amer) BUN/Creatinine Ratio Glucose POC Glucose (other) 99 Calcium POC Ioniz Calcium Jameson 1.17 Total Bilirubin AST ALT Alkaline Phosphatase Total Protein Albumin Globulin Albumin/Globulin Ratio Lipase Urine Color Yellow Yellow Urine Appearance Cloudy A Clear Urine pH 6.0 6.5 Ur Specific [place] 1.013 1.041 H Urine Protein Trace H Negative Urine Glucose (UA) Negative Negative Urine Ketones Negative Negative Urine Blood 1+ H Negative Urine Nitrite Negative Negative Urine Bilirubin Negative Negative Urine Urobilinogen Negative Negative Ur Leukocyte Esterase 3+ H 2+ H Urine WBC (Auto) >30 H >30 H Urine RBC (Auto) 10-30 H 0-4 U Hyaline Cast (Auto) 5-10 H 1-5 U Epithel Cells (Auto) >30 H 0-5 Urine Bacteria (Auto) 1+ H Negative Urine Test POC Ur Test 09/27/19 16:00 WBC RBC Hgb POC Hgb Hct POC Hct MCV MCH MCHC RDW Std Deviation RDW Coeff of Tenisha Plt Count MPV Immature Gran % (Auto) Neut % (Auto) Lymph % (Auto) [place] % (Auto) Eos % (Auto) Baso % (Auto) Immature Gran # (Auto) Neut # (Auto) Lymph # (Auto) [place] # (Auto) Eos # (Auto) Baso # (Auto) POC Sodium Sodium POC Potassium Potassium POC Chloride Chloride Carbon Dioxide POC Total CO2 Anion Gap POC Anion Gap POC BUN BUN Creatinine POC Creatinine Est Cr Clr Drug Dosing Est GFR ( Amer) Est GFR (Non-Af Amer) BUN/Creatinine Ratio Glucose POC Glucose (other) Calcium POC Ioniz Calcium Jameson Total Bilirubin AST ALT Alkaline Phosphatase Total Protein Albumin Globulin Albumin/Globulin Ratio Lipase Urine Color Urine Appearance Urine pH Ur Specific [place] Urine Protein Urine Glucose (UA) Urine Ketones Urine Blood Urine Nitrite Urine Bilirubin Urine Urobilinogen Ur Leukocyte Esterase Urine WBC (Auto) Urine RBC (Auto) U Hyaline Cast (Auto) U Epithel Cells (Auto) Urine Bacteria (Auto) Urine Test Negative POC Ur Test Diagnostic Findings CT abd/pelvis - IMPRESSION: 1. No evidence of bowel obstruction. No evidence of free air 2. 38 mm upper pole staghorn right renal calculus. There is mild associated uroepithelial thickening. Correlation with urinalysis is recommended to exclude a coexistent urinary tract infection 3. Mild gallbladder distention. There is evidence for increased luminal pressure as the gallbladder deforms the right anterior abdominal wall. This finding is associated with acute cholecystitis. Clinical correlation in regards to acute cholecystitis is recommended. Correlation with gallbladder ultrasound and/or nuclear medicine hepatobiliary study should be considered in follow-up PG Care Time/CCT Total # of Minutes Spent Total Time Spent with Patient: Total time spent is greater than 50% in coordination of care (as documented) at patient's floor/unit and/or counseling patient: Coding Level of Care Code 14432 Inpt Consult Level 2 Diagnoses S/P laparoscopic cholecystectomy Z90.49 Asthma J45.20 Asthma severity: mild Asthma persistence: intermittent Asthma complication type: uncomplicated Anxiety F41.9 Recurrent urinary tract infection N39.0 Staghorn renal calculus N20.0 ADHD F90.9 Attention deficit-hyperactivity disorder type: unspecified (1) Asthma Asthma severity: mild Asthma persistence: intermittent Asthma complication type: uncomplicated Qualified Code(s): J45.20 - Mild intermittent asthma, uncomplicated (2) ADHD Attention deficit-hyperactivity disorder type: unspecified Qualified Code(s): F90.9 - Attention-deficit hyperactivity disorder, unspecified type
[2019-09-27] MEDS ORDERED: IBUPROFEN 600 MG TAB PO PRN (20:55)
[2019-09-27] MEDS ORDERED: SODIUM CHLORIDE 0.9% 1000ML 1,000 ML IV SCH (20:55)
[2019-09-27] MEDS ORDERED: HYDROmorphone INJ 1 MG/ML SYRINGE IV PRN (20:55)
[2019-09-27] MEDS ORDERED: HYDROmorphone INJ 0.5 MG/0.5 ML SYR IV PRN (20:55)
[2019-09-27] MEDS ORDERED: ACETAMINOPHEN 325 MG TAB PO PRN (20:55)
[2019-09-27] MEDS ORDERED: LORazepam 0.5 MG/1 ML VIAL IV PRN (20:55)
[2019-09-27] MEDS ORDERED: PROMETHAZINE HCL 25 MG in SODIUM CHLORIDE 0.9% 50 ML IV PRN (20:55)
[2019-09-27] MEDS ORDERED: PROMETHAZINE HCL 12.5 MG in SODIUM CHLORIDE 0.9% 50 ML IV PRN (20:55)
[2019-09-27] MEDS ORDERED: HYDROCODONE/ACETAMOPHEN 5/325MG TAB PO PRN ×2 (20:55)
[2019-09-27] MEDS ORDERED: ALBUTEROL HFA 8 GM INHALER INH PRN (21:01)
[2019-09-28 06:39] LABS: Albumin Level 3.5 gm/dl (3.4-5.0); BUN Creatinine Ratio 7.4 (10-20); Bilirubin Direct 0.1 mg/dl (0-0.2); Creatinine Clr Calc Pharmacy 116.6 ml/min; Est GFR (African American) 92.2; Est GFR (Non-African American) 79.5; Potassium 3.8 mmol/L (3.5-5.1)
[2019-09-28 06:42] LABS: Albumin Globulin Ratio 0.9 (0.9-2); Bilirubin,Total 0.6 mg/dl (0.2-1); Phosphorus 3.3 mg/dl (2.5-4.9); Total Protein 7.5 gm/dl (6.4-8.2)
[2019-09-28] MEDS ORDERED: GUANFACINE HCL 1 MG TAB PO SCH (09:00)
[2019-09-28] MEDS ORDERED: SERTRALINE HCL 50 MG TABLET PO SCH (09:00)
--- NOTE | 2019-09-28 09:00 | Discharge Summary (DS) ---
DATE OF DISCHARGE: 09/28/2019 PRINCIPAL DIAGNOSIS: Acute and chronic cholecystitis. PROCEDURES: The patient underwent laparoscopic cholecystectomy. HISTORY OF PRESENT ILLNESS: The patient is a 23-year-old female with recurrent right upper quadrant pain consistent with biliary colic with findings of possible acute cholecystitis. HOSPITAL COURSE: She was taken to the operating room on 09/27/2019 where she underwent laparoscopic cholecystectomy showing severe acute and chronic cholecystitis. She has done quite well overnight, is tolerating p.o. intake and is felt stable for discharge home today to be followed in the surgical clinic within 2-3 weeks. We will continue the patient on [place] and ciprofloxacin.
== END 2019-09-28 09:31 | disposition home or self-care (01) | DRG 418 ==
LOC: ED 14:16 → OR 16:40 → INTOOBSV 19:31 → 3E 19:31